=== PATIENT | female | born 1970 | race Caucasian/White ===

== ENCOUNTER 2020-02-11 11:49 | Emergency (ER) | payer MEDICAID ==
[~2020-02-11] VITALS: Ht 167.6 cm; Wt 52.3 kg
[2020-02-11] MEDS ORDERED: normal saline 1000ml 1,000 ML IV ONE (12:20)
[2020-02-11] MEDS ORDERED: tranexamic acid 100mg/ml inj. IV ONE (12:20)
[2020-02-11] MEDS ORDERED: TRANEXAMIC ACID 1 GM IN NACL,ISO-OS 100 ML IV ONE (12:25)
[2020-02-11 12:27] LABS: BASOPHILS % (AUTO) 0.7 % (0-1); EOSINOPHILS % (AUTO) 0.9 % (0-6); HEMATOCRIT 31.8 % (35.0-45.0); HEMOGLOBIN 10.4 g/dl (12.0-16.0); LYMPHOCYTES # (AUTO) 1.7 X10'3 (1.1-4.8); LYMPHOCYTES % (AUTO) 33.5 % (21-51); MEAN CORPUSCULAR HEMOGLOBIN 26.8 PG (27.0-31.0); MEAN CORPUSCULAR HGB CONC 32.5 g/dL (33.0-36.5); MEAN CORPUSCULAR VOLUME 82.5 FL (78-98); MEAN PLATELET VOLUME 8.8 FL (7.4-10.4); MONOCYTES # (AUTO) 0.4 X10'3 (0-0.9); MONOCYTES % (AUTO) 8.3 % (2-12); NEUTROPHILS # (AUTO) 2.8 X10'3 (1.8-7.7); NEUTROPHILS % (AUTO) 56.6 % (42-75); PLATELET COUNT 288 X10'3 (140-440); RED BLOOD COUNT 3.86 X10'6 (4.20-5.60); RED CELL DISTRIBUTION WIDTH 18.6 % (11.5-14.5)
[2020-02-11 12:39] LABS: ALANINE AMINOTRANSFERASE 20 U/L (12-78); ALBUMIN/GLOBULIN RATIO 1.3 (1.1-1.5); ALKALINE PHOSPHATASE 48 IU/L (46-116); ANION GAP 9 (8-16); ASPARTATE AMINO TRANSFERASE 17 U/L (10-37); BILIRUBIN,TOTAL 0.6 MG/DL (0.1-1.0); BLOOD UREA NITROGEN 12 MG/DL (7-18); BUN/CREATININE RATIO 20.3 (6.6-38.0); CALCIUM 8.8 MG/DL (8.5-10.1); CHLORIDE 104 MMOL/L (99-107); CREATININE 0.59 MG/DL (0.40-0.90); GLUCOSE 98 MG/DL (70-104); POTASSIUM 3.5 MMOL/L (3.5-5.1); SODIUM 138 MMOL/L (135-145); TOTAL CARBON DIOXIDE 25.4 MMOL/L (24-32); TOTAL PROTEIN 7.2 G/DL (6.4-8.2); eGFR > 90 ML/MIN
[2020-02-11 12:52] LABS: ANISOCYTOSIS 2+; PLATELET ESTIMATE NORMAL
[2020-02-11 13:04] VITALS: BP 99/71
[2020-02-11] MEDS ORDERED: NORG1TAB12 PO (13:44)
== END 2020-02-11 13:57 | disposition home or self-care (01) ==
LOC: ER 11:50
DX: N92.0 Excessive and frequent menstruation with regular cycle (principal); R06.02 Shortness of breath; Z88.6 Allergy status to analgesic agent
CPT/HCPCS: 36415; 80053; 83880; 84484; 85025; 86885; 86900; 86901; 93005; 96365; 99284; J7030